=== PATIENT | male | born 1955 | race Caucasian/White ===

== ENCOUNTER 2016-10-03 12:19 | Emergency (ER) | payer OTHER ==
[~2016-10-03] VITALS: Ht 170.2 cm; Wt 79.5 kg
[2016-10-03 12:52] LABS: HEMATOCRIT 36.3 % (39.0-50.0); HEMOGLOBIN 13.7 g/dl (14.0-18.0); IMMATURE GRANULOCYTES 0.3 % (0.0-1.0); MEAN CORPUSCULAR HGB 32.5 pG CALC (26.0-32.0); MEAN CORPUSCULAR HGB CONC 37.7 g/L CALC (32.0-36.0); NEUT# 7.69 thou/uL (1.82-7.42); RED BLOOD COUNT 4.22 mill/uL (4.70-6.10)
[2016-10-03 13:23] LABS: PROTHROMBIN TIME 10.3 SECONDS (9.0-12.5)
[2016-10-03 13:24] LABS: ALBUMIN 4.8 g/dL (3.2-5.0); ALKALINE PHOSPHATASE 87 u/l (38-126); AMYLASE 93 u/l (30-110); ANION GAP 22 (6-22 (CALC)); BILIRUBIN, TOTAL 1.1 mg/dL (0.0-1.4); BUN 10 mg/dL (8-23); BUN/CREATININE RATIO 13 (12-20 (CALC)); CALCIUM 9.8 mg/dL (8.4-10.2); CARBON DIOXIDE 18 mmol/l (22-30); CHLORIDE 95 mmol/l (95-108); CREATININE 0.8 mg/dL (0.7-1.3); GFR > 60 ML/MIN (>=60 (CALC)); GFR FOR AFR.AMER. > 60 ML/MIN (>=60 (CALC)); GLUCOSE 149 mg/dL (82-115); LIPASE 29 u/l (23-300); POTASSIUM 3.7 mmol/l (3.5-5.1); SGOT/AST 43 u/l (19-48); SGPT/ALT 50 u/l (11-66); SODIUM 131 mmol/l (137-146)
[2016-10-03 13:35] LABS: MYOGLOBIN 63 ng/mL (0 - 121)
[2016-10-03] MEDS ORDERED: QUINAPRIL10 MG PO (15:05)
[2016-10-03] MEDS ORDERED: SIMVASTATIN10 MG PO (15:06)
[2016-10-03 15:50] LABS: URINE BILIRUBIN - DIPSTICK NEGATIVE (NEGATIVE); URINE BLOOD DIPSTICK NEGATIVE (NEGATIVE); URINE CLARITY CLEAR; URINE COLOR YELLOW; URINE GLUCOSE - DIPSTICK NEGATIVE (NEGATIVE); URINE KETONE 15 mg/dL (NEGATIVE); URINE LEUK ESTERASE NEGATIVE (NEGATIVE); URINE NITRITE - DIPSTICK NEGATIVE (Negative); URINE PH 7.5 (4.5-8.0); URINE PROTEIN - DIPSTICK NEGATIVE (NEG-TRACE); URINE UROBILINOGEN - DIPSTICK 0.2 E.U./dL (0.2)
[2016-10-03 16:12] VITALS: BP 114/71
== END 2016-10-03 16:30 | disposition left against medical advice (07) | DRG 313 ==
LOC: ED 12:19
PROVIDERS: Emergency Medicine
DX: R07.9 Chest pain, unspecified (principal); I10 Essential (primary) hypertension; Z91.19 Patient's noncompliance with other medical treatment and regimen; R11.2 Nausea with vomiting, unspecified
CPT/HCPCS: Q9967